=== PATIENT | female | born 1965 | race Caucasian/White ===

== ENCOUNTER 2018-03-08 11:47 | Emergency (ER) | payer BC ==
[~2018-03-08] VITALS: Ht 154.9 cm; Wt 61.5 kg
[~2018-03-08 11:47] MED LIST: PERCOCET 5/31 TABLET PO; ZOFRAN ODT4 MG PO
[2018-03-08 13:50] VITALS: BP 128/90
== END 2018-03-08 13:50 | disposition home or self-care (01) ==
LOC: EME 11:47
DX: S00.03XA Contusion of scalp, initial encounter (principal); W01.198A Fall on same level from slipping, tripping and stumbling with subsequent striking against other object, initial encounter
CPT/HCPCS: 70450; 99281; 99284

== ENCOUNTER 2018-05-16 05:33 | Day surgery (SDC) | payer BC ==
[~2018-05-16] VITALS: Ht 154.9 cm; Wt 58.1 kg
[~2018-05-16 05:33] MED LIST changes: +SLEEP AID PO
[2018-05-16 05:50] VITALS: BP 132/86
[2018-05-16] MEDS ORDERED: NORCO 5/3251 TABLET PO (09:22)
[2018-05-16 10:13] VITALS: BP 142/84
[2018-05-16 11:06] VITALS: BP 132/74
[2018-05-16 12:43] VITALS: BP 125/83
== END 2018-05-16 12:55 | disposition home or self-care (01) ==
LOC: SDC 05:33
DX: K80.10 Calculus of gallbladder with chronic cholecystitis without obstruction (principal); R00.1 Bradycardia, unspecified
CPT/HCPCS: 74300; 88304; 93005; C1769; J0330; J1100; J1170; J1885; J2250; J2405; J3010; S0020; S0074